=== PATIENT | male | born 1970 | race Caucasian/White ===

== ENCOUNTER → 2017-06-30 | Outpatient (CLI) | payer MEDICAID | LOC: FIMAGING 07:55 | PROVIDERS: ATTEND Family Medicine Sports Medicine | DX: M25.851 Other specified joint disorders, right hip (principal); M16.11 Unilateral primary osteoarthritis, right hip; M76.891 Other specified enthesopathies of right lower limb, excluding foot ==

== ENCOUNTER → 2017-08-22 | Outpatient (CLI) | payer MEDICAID | LOC: FIMAGING 06:52 | PROVIDERS: ATTEND Family Medicine Sports Medicine | DX: M51.36 Other intervertebral disc degeneration, lumbar region (principal); M51.37 Other intervertebral disc degeneration, lumbosacral region; M48.061 Spinal stenosis, lumbar region without neurogenic claudication; M41.86 Other forms of scoliosis, lumbar region ==

== ENCOUNTER → 2017-10-06 | Outpatient (CLI) | payer MEDICAID | LOC: FIMAGING 16:03 | PROVIDERS: ATTEND Family Medicine Sports Medicine | DX: M51.34 Other intervertebral disc degeneration, thoracic region (principal); M12.88 Other specific arthropathies, not elsewhere classified, other specified site; M48.04 Spinal stenosis, thoracic region; M99.72 Connective tissue and disc stenosis of intervertebral foramina of thoracic region; M51.36 Other intervertebral disc degeneration, lumbar region; M41.26 Other idiopathic scoliosis, lumbar region; M25.859 Other specified joint disorders, unspecified hip; M16.11 Unilateral primary osteoarthritis, right hip ==

== ENCOUNTER → 2017-11-09 | Outpatient (CLI) | payer MEDICAID | LOC: FIMAGING 07:08 | PROVIDERS: ATTEND Orthopaedic Surgery Sports Medicine | DX: M25.852 Other specified joint disorders, left hip (principal); M24.152 Other articular cartilage disorders, left hip ==